=== PATIENT | male | born 1940 | race Caucasian/White ===

== ENCOUNTER 2019-12-12 15:46 | Emergency (ER) | payer OTHER, MEDICARE ==
[~2019-12-12] VITALS: Ht 177.8 cm; Wt 77.8 kg
[~2019-12-12 15:46] MED LIST: ASPI-611 PO; CARB1TAB42 PO; FLO0.1T PO; FURO20TA4 PO; GABA300C PO; GABA300T25 PO; GABAPENTIN; ISOS30TA6 PO; LEVO75TA PO; NITR0.4T51 SL; POTA20TA19 PO; SPIR25TA5 PO; TRAZ-251 PO
[2019-12-12] MEDS ORDERED: LIDOcaine 2% 10ml TOPICAL JELLY (Urojet) TP ONE (16:25)
[2019-12-12] MEDS ORDERED: CEPH250T PO (17:17)
[2019-12-12 18:35] VITALS: BP 163/85
== END 2019-12-12 18:39 | disposition home or self-care (01) ==
LOC: ER 15:46
DX: T85.9XXA Unspecified complication of internal prosthetic device, implant and graft, initial encounter (principal); F03.90 Unspecified dementia, unspecified severity, without behavioral disturbance, psychotic disturbance, mood disturbance, and anxiety; I25.10 Atherosclerotic heart disease of native coronary artery without angina pectoris; N18.9 Chronic kidney disease, unspecified; Z95.1 Presence of aortocoronary bypass graft; Z95.0 Presence of cardiac pacemaker; Z79.82 Long term (current) use of aspirin; Z79.899 Other long term (current) drug therapy
CPT/HCPCS: 51702; 99284

== ENCOUNTER 2020-03-23 12:34 | Emergency (ER) | payer OTHER, MEDICARE ==
[~2020-03-23] VITALS: Ht 182.9 cm; Wt 77.3 kg
[~2020-03-23 12:34] MED LIST changes: -ASPI-611 PO; +CARB1TAB23 PO; -CARB1TAB42 PO; +ESCI5TAB12 PO; +FURO-150 PO; -FURO20TA4 PO; -GABA300T25 PO; -GABAPENTIN; +LOSA25TA41 PO; -NITR0.4T51 SL; +POTA10CA44 PO; -POTA20TA19 PO
--- NOTE | 2020-03-23 14:00 | NUR ---
Patient continues to try to climb out of bed and yelling for help. Call light within reach. Reoriented patient to call light and that he is too unstable to walk at this time.
[2020-03-23 14:20] LABS: BASOPHILS # (AUTO) 0.1 X10'3 (0-0.2); BASOPHILS % (AUTO) 0.9 % (0-1); EOSINOPHILS % (AUTO) 0.6 % (0-6); HEMATOCRIT 32.3 % (42.0-52.0); HEMOGLOBIN 10.5 g/dl (14.0-17.9); LYMPHOCYTES # (AUTO) 1.4 X10'3 (1.1-4.8); LYMPHOCYTES % (AUTO) 19.1 % (21-51); MEAN CORPUSCULAR HEMOGLOBIN 29.3 PG (27.0-31.0); MEAN CORPUSCULAR HGB CONC 32.6 g/dL (33.0-36.5); MEAN CORPUSCULAR VOLUME 89.7 FL (78-98); MEAN PLATELET VOLUME 9.2 FL (7.4-10.4); MONOCYTES # (AUTO) 0.7 X10'3 (0-0.9); MONOCYTES % (AUTO) 9.2 % (2-12); NEUTROPHILS % (AUTO) 70.2 % (42-75); PLATELET COUNT 214 X10'3 (140-440); RED CELL DISTRIBUTION WIDTH 17.4 % (11.5-14.5); WHITE BLOOD COUNT 7.2 X10'3 (4.5-11.0)
[2020-03-23 14:35] LABS: ALANINE AMINOTRANSFERASE 6 U/L (12-78); ALBUMIN 3.5 G/DL (3.4-5.0); ALBUMIN/GLOBULIN RATIO 0.8 (1.1-1.5); ALKALINE PHOSPHATASE 137 IU/L (46-116); ANION GAP 8 (8-16); ASPARTATE AMINO TRANSFERASE 18 U/L (10-37); BILIRUBIN,TOTAL 1.6 MG/DL (0.1-1.0); BLOOD UREA NITROGEN 18 MG/DL (7-18); BUN/CREATININE RATIO 15.4 (5.4-32.0); CHLORIDE 110 MMOL/L (99-107); CREATININE 1.17 MG/DL (0.60-1.10); GLUCOSE 104 MG/DL (70-104); POTASSIUM 3.8 MMOL/L (3.5-5.1); SODIUM 147 MMOL/L (135-145); TOTAL CARBON DIOXIDE 28.8 MMOL/L (24-32); eGFR 60 ML/MIN
[2020-03-23 14:50] LABS: ACANTHOCYTES FEW; ANISOCYTOSIS 1+; BURR CELLS 1+; ELLIPTOCYTES 1+; HYPOCHROMASIA 1+; PLATELET ESTIMATE NORMAL; POIKILOCYTOSIS 1+; SCHISTOCYTES FEW
--- NOTE | 2020-03-23 15:30 | NUR ---
Assisted patient with standing at bedside to attempt to use urinal and collect urine. Patient unable to provide urine.
--- NOTE | 2020-03-23 16:00 | NUR ---
Patient continues to yell for staff to help him. Patient has call light within reach, reoriented to using call light. Patient okay to eat per Obdulio GILES. Reg. Diet meal tray ordered.
[2020-03-23 16:01] VITALS: BP 166/114
--- NOTE | 2020-03-23 16:55 | NUR ---
Spoke to patient's Nati who will be transporting patient back to [facility]. Nati phone number [phone]
--- NOTE | 2020-03-23 17:42 | NUR ---
Nati notified regarding d/c. On her way to pick patient up and transport to [facility]. [facility] notified.
== END 2020-03-23 18:50 | disposition home or self-care (01) ==
LOC: ER 12:35
DX: R06.02 Shortness of breath (principal); F03.90 Unspecified dementia, unspecified severity, without behavioral disturbance, psychotic disturbance, mood disturbance, and anxiety; N18.9 Chronic kidney disease, unspecified; I50.9 Heart failure, unspecified; I25.10 Atherosclerotic heart disease of native coronary artery without angina pectoris; Z95.1 Presence of aortocoronary bypass graft; Z95.0 Presence of cardiac pacemaker; Z87.01 Personal history of pneumonia (recurrent); Z79.899 Other long term (current) drug therapy
CPT/HCPCS: 36415; 71045; 80053; 82140; 83880; 85008; 85025; 93005; 99285

== ENCOUNTER 2020-04-02 05:06 | Emergency (ER) | payer OTHER, MEDICARE ==
[~2020-04-02] VITALS: Ht 180.3 cm; Wt 79.5 kg
[~2020-04-02 05:06] MED LIST changes: -POTA10CA44 PO; +POTA20PA40 PO
[2020-04-02] MEDS ORDERED: ipratropium/albuterol 3ml nebule NEB ONE (05:20)
[2020-04-02] MEDS ORDERED: ipratropium/albuterol 3ml nebule NEB SCH (05:20)
[2020-04-02 08:33] LABS: BASOPHILS % (AUTO) 0.2 % (0-1); EOSINOPHILS % (AUTO) 0.3 % (0-6); HEMATOCRIT 33.8 % (42.0-52.0); HEMOGLOBIN 11.2 g/dl (14.0-17.9); LYMPHOCYTES # (AUTO) 0.7 X10'3 (1.1-4.8); LYMPHOCYTES % (AUTO) 5.7 % (21-51); MEAN CORPUSCULAR HEMOGLOBIN 30.2 PG (27.0-31.0); MEAN CORPUSCULAR HGB CONC 33.1 g/dL (33.0-36.5); MEAN CORPUSCULAR VOLUME 91.2 FL (78-98); MEAN PLATELET VOLUME 8.8 FL (7.4-10.4); MONOCYTES # (AUTO) 0.7 X10'3 (0-0.9); MONOCYTES % (AUTO) 5.9 % (2-12); NEUTROPHILS # (AUTO) 10.7 X10'3 (1.8-7.7); NEUTROPHILS % (AUTO) 87.9 % (42-75); PLATELET COUNT 171 X10'3 (140-440); RED BLOOD COUNT 3.71 X10'6 (4.70-6.10); RED CELL DISTRIBUTION WIDTH 17.6 % (11.5-14.5); WHITE BLOOD COUNT 12.2 X10'3 (4.5-11.0)
[2020-04-02 08:40] LABS: ALBUMIN 3.2 G/DL (3.4-5.0); ALBUMIN/GLOBULIN RATIO 0.7 (1.1-1.5); ALKALINE PHOSPHATASE 132 IU/L (46-116); ANION GAP 8 (8-16); ASPARTATE AMINO TRANSFERASE 14 U/L (10-37); BILIRUBIN,TOTAL 2.1 MG/DL (0.1-1.0); BLOOD UREA NITROGEN 16 MG/DL (7-18); BUN/CREATININE RATIO 15.2 (5.4-32.0); CALCIUM 8.7 MG/DL (8.5-10.1); CHLORIDE 106 MMOL/L (99-107); CREATININE 1.05 MG/DL (0.60-1.10); GLUCOSE 116 MG/DL (70-104); POTASSIUM 3.1 MMOL/L (3.5-5.1); SODIUM 143 MMOL/L (135-145); TOTAL CARBON DIOXIDE 29.4 MMOL/L (24-32); TOTAL PROTEIN 7.5 G/DL (6.4-8.2); eGFR 68 ML/MIN
[2020-04-02 08:41] LABS: ALANINE AMINOTRANSFERASE < 6 U/L (12-78)
[2020-04-02] MEDS ORDERED: potassium Cl 20 mEq SR tablet PO STA (08:56)
[2020-04-02 09:23] LABS: PLATELET ESTIMATE NORMAL
[2020-04-02 09:24] LABS: ANISOCYTOSIS 1+; ELLIPTOCYTES FEW; HYPOCHROMASIA 1+; STOMATOCYTES FEW
[2020-04-02 09:25] LABS: ACANTHOCYTES FEW; SCHISTOCYTES FEW
--- NOTE | 2020-04-02 09:34 | NUR ---
PATIENT IS BEING DC FROM ER. TC TO TOUCH OF SONNY, WHO SUGGESTED TO CALL FOR TRANSPORTATION ARRANGEMENTS.
--- NOTE | 2020-04-02 09:50 | NUR ---
Spoke w/ pt's seeking transportation. asked about what could be done as she is unable to care for pt. directed her to pcp seeking possible comfort care or hospice.
[2020-04-02 12:03] VITALS: BP 129/98
== END 2020-04-02 12:05 | disposition home or self-care (01) ==
LOC: ER 05:07
DX: I50.9 Heart failure, unspecified (principal); E87.6 Hypokalemia; G30.9 Alzheimer's disease, unspecified; F02.80 Dementia in other diseases classified elsewhere, unspecified severity, without behavioral disturbance, psychotic disturbance, mood disturbance, and anxiety; G20 Parkinson's disease; N18.9 Chronic kidney disease, unspecified; I25.10 Atherosclerotic heart disease of native coronary artery without angina pectoris; Z95.1 Presence of aortocoronary bypass graft; Z79.899 Other long term (current) drug therapy; Z79.82 Long term (current) use of aspirin
CPT/HCPCS: 36415; 71045; 80053; 83880; 85008; 85025; 93005; 94640; 94760; 99285